=== PATIENT | female | born 1960 | race Caucasian/White ===

== ENCOUNTER 2021-01-15 19:42 | Emergency (ER) | payer OTHER ==
[~2021-01-15] VITALS: Ht 152.4 cm; Wt 77.1 kg
[2021-01-15 19:59] VITALS: BP 137/70
--- NOTE | 2021-01-15 21:40 | NUR ---
PT RETURN FROM GURMEET TO [facility]
--- NOTE | 2021-01-15 21:51 | NUR ---
PT AMBULATED TO BED #1
--- NOTE | 2021-01-15 22:10 | NUR ---
Dr. Blandon examining patient.
[2021-01-15] MEDS ORDERED: PIPERACILLIN/TAZOBACTAM 3.375 GM in DEXTROSE 5% 50 ML IV ONE (22:30)
[2021-01-15] MEDS ORDERED: VANCOMYCIN 1,000 MG in DEXTROSE 5% 250 ML IV ONE (22:30)
[2021-01-15] MEDS ORDERED: metroNIDAZOLE 500 MG/NS PREMIX 100 ML IV ONE (22:35)
[2021-01-15] MEDS ORDERED: cefTRIAXone 1,000 MG VIAL ONE (22:58)
[2021-01-15 23:00] LABS: BASOPHILS % (AUTO) 0.5 % (0.0-2.0); EOSINOPHILS # (AUTO) 0.2 K/uL (0-0.4); EOSINOPHILS % (AUTO) 4.5 % (0.0-4.0); HEMATOCRIT 39.4 % (36-48); HEMOGLOBIN 13.4 g/dL (12.0-16.0); LYMPHOCYTES # (AUTO) 1.7 K/uL (2.5-16.5); MEAN CORPUSCULAR HEMOGLOBIN 31 pg (27-31); MEAN CORPUSCULAR HGB CONC 34 g/dL (33-37); MEAN CORPUSCULAR VOLUME 89.5 fL (80-94); MONOCYTES # (AUTO) 0.4 K/uL (0.8-1.0); MONOCYTES % (AUTO) 9.9 % (1.7-9.3); NEUTROPHILS % (AUTO) 46.1 % (42.2-75.2); PLATELET COUNT (AUTO) 186 K/uL (140-450); RED CELL DISTRIBUTION WIDTH 13.3 % (11.6-13.7); WHITE BLOOD COUNT (AUTO) 4.3 K/uL (4.8-10.8)
--- NOTE | 2021-01-15 23:15 | NUR ---
61 YO/F BIB DAUGHTER W C/O OF R FOOT PAIN 8/10, THROBBING, INTERMITTENT, WORSENING WHEN WALKING +SWELLING X1WEEK REPORTING ITS D/T INGROWN TOE NAIL TO R GREAT TOE. PT DENIES ANY FEVER/CHILLS. SWELLING NOTED TO R FOOT/GREAT TOE W SLIGHT REDNESS, NO WOUNDS,+SENSATION BL FEET, +PEDAL PULSES. PT LAYING IN BED LOCKED IN LOWEST POSITION W X1 SIDERAIL UP, DAUGHTER AT OTHER BEDSIDE. VSS. NAD NOTED, WILL CONTINUE TO MONITOR. PMH:DIABETES NKA
[2021-01-15 23:16] LABS: ALBUMIN 3.6 g/dL (3.4-5.0); ANION GAP 11.1 (8-16); CARBON DIOXIDE 28.7 mmol/L (21-32); CREATININE 0.5 mg/dL (0.6-1.3); POTASSIUM 3.8 mmol/L (3.5-5.1); TOTAL BILIRUBIN 0.4 mg/dL (0.0-1.0)
--- NOTE | 2021-01-15 23:20 | NUR ---
PT AMBULATED TO BATHROOM W STEADY GAIT.
--- NOTE | 2021-01-15 23:41 | NUR ---
Note undone in EDM - 01/16/21 at 0017 by MATTHEW 61 YO/F BIB DAUGHTER W C/O OF R FOOT PAIN 09/19, THROBBING, INTERMITTENT, WORSENING WHEN WALKING +SWELLING X1WEEK REPORTING ITS D/T INGROWN TOE NAIL TO R GREAT TOE. PT DENIES ANY FEVER/CHILLS. SWELLING NOTED TO R FOOT/GREAT TOE W SLIGHT REDNESS, NO WOUNDS,+SENSATION BL FEET, +PEDAL PULSES. PT LAYING IN BED LOCKED IN LOWEST POSITION W X1 SIDERAIL UP, DAUGHTER AT OTHER BEDSIDE. VSS. NAD NOTED, WILL CONTINUE TO MONITOR. PMH:DIABETES NKA
[2021-01-15] MEDS ORDERED: VANCOMYCIN 1,000 MG VIAL ONE (23:50)
[2021-01-16] MEDS ORDERED: METF-1022 PO ×2 (00:31→18:05)
[2021-01-16] MEDS ORDERED: AMOX-1000 PO ×2 (00:31→18:05)
--- NOTE | 2021-01-16 01:15 | NUR ---
PT C/O ITCHING TO HEAD, REDNESS TO FACE, PERIORBITAL PUFFINESS, LOWER LIP SWOLLEN, PT HAD BEEN RUNNING VANCOCIN. VANCOCIN ADMINISTRATION STOPPED. ERMD MADE AWARE. PT DENIES ANY SOB, DIFF SWALLOWING. VSS.
[2021-01-16] MEDS ORDERED: metroNIDAZOLE 500 MG/NS PREMIX 100 ML IV ONE (01:19)
--- NOTE | 2021-01-16 02:30 | NUR ---
PT REPORTS PAIN IMPROVEMENT.
[2021-01-16 02:45] VITALS: BP 136/76
--- NOTE | 2021-01-16 02:45 | NUR ---
Patient discharged with v/s stable. Written and verbal after care instructions given and explained. Patient alert, oriented and verbalized understanding of instructions. Ambulatory with steady gait. All questions addressed prior to discharge. ID band removed. Patient advised to follow up with PMD. Rx of AUGMENTIN, METFORMIN given. Patient educated on indication of medication including possible reaction and side effects. Opportunity to ask questions provided and answered.
== END 2021-01-16 02:45 | disposition home or self-care (01) ==
LOC: MED 19:42
DX: L03.031 Cellulitis of right toe (principal); B35.1 Tinea unguium
CPT/HCPCS: 36415; 73660; 80053; 83605; 85025; 85651; 86140; 87040; 96365; 96367; 96375; 99285; J0696; J3370; J3490; Q0163